=== PATIENT | female | born 1935 | race Asian ===

== ENCOUNTER 2018-07-25 16:50 | Inpatient (IN) | payer MEDICARE, OTHER ==
[~2018-07-25] VITALS: Ht 160 cm; Wt 56.7 kg
[2018-07-25 17:39] VITALS: BP 148/66
--- NOTE | 2018-07-25 17:41 | NUR ---
ED Nurse Note:pt. was BIBA from assist living, s/p fall and bumped her head, skin is intact, no c/o pain, pt. had CT head done
--- NOTE | 2018-07-25 18:20 | Emergency Room Report ---
History of Present Illness General Chief Complaint: Multiple Trauma/Fall Source: Patient Present Illness HPI Patient had a fall and was caught by staff but still ended up hitting her head. Was non-syncopal. She is here for a CAT scan of her head. Patient denies any headache. She's focused on her teeth and the fact that they need to be straightened. She denies any jaw pain. No fevers, chills, chest pain, palpitations, nausea, vomiting, diarrhea, dysuria , abdominal pain, shortness of breath, depression, visual changes, headache. Patient has dementia and recent memory is very poor. Distant memory is good. Multiple falls and staff unable to re-direct and take care of patient. Allergies: Coded Allergies: No Known Allergies (Unverified , 07/25/18) Patient History Limited by: other - Veracity questioned Past Medical History: see triage record Social History: Denies: smoking, alcohol use, drug use Social History Narrative assisted living - retired chief counsel - from [place] Reviewed Nursing Documentation: PMH: Agreed; PSxH: Agreed Nursing Documentation-PMH Past Medical History: No History, Except For Hx Hypertension: Yes Hx Neurological Problems: Yes - Alzheimer's disease, dementia Review of Systems All Other Systems: limited Physical Exam Vital Signs Date Time Temp Pulse Resp B/P (MAP) Pulse Ox O2 Delivery O2 Flow Rate FiO2 07/25/18 16:54 98.2 63 16 148/66 97 Room Air Sp02 EP Interpretation: reviewed, normal General Appearance: well appearing, no apparent distress, alert, other - GCS 14 Head: normocephalic, atraumatic Eyes: bilateral eye normal inspection, bilateral eye PERRL ENT: hearing grossly normal, normal voice, moist mucus membranes - No serious caries or gum inflammation Neck: full range of motion, supple, no bony tend Respiratory: chest non-tender, lungs clear, normal breath sounds, no respiratory distress, speaking full sentences Cardiovascular #1: regular rate, rhythm, no edema Cardiovascular #2: 2+ radial (R) Gastrointestinal: normal inspection, normal bowel sounds, non tender, soft Genitourinary: no CVA tenderness Musculoskeletal: back normal, digits/nails normal, normal range of motion, no calf tenderness Neurologic: alert, travel clerk III-XII nml as tested, motor strength/tone normal, DTRs symmetric, sensory intact, speech normal, oriented - X2 Psychiatric: mood/affect normal, other - poor recent memory Skin: no rash Medical Decision Making Diagnostic Impression: Primary Impression: Head contusion Qualified Codes: S00.93XA - Contusion of unspecified part of head, initial encounter Additional Impressions: Failure to thrive Qualified Codes: R62.7 - Adult failure to thrive UTI (urinary tract infection) Qualified Codes: N39.0 - Urinary tract infection, site not specified ER Course Patient with falling episodes at assisted living. DdX: bleed, contusion, failure to thrive, electrolyte abnormality, CVA, UTI amongst others. Evaluation with CT and labs. CT no bleed. Involutional changes. Labs with pyuria. CXR no infiltrate.. EKG no injury. PMD states living facility can't take care of her. Patient not responding to suggestions to rest. Non-behavioral restraints and sedation ordered. Pyuria. Rocephin ordered. Improved. Less agitated. Ambulatory on own still disoriented and somewhat unsteady. Admit med. Dr. Mcclain. Laboratory Tests Test 07/25/18 18:40 07/25/18 19:20 Urine Color Pale yellow Urine Appearance Clear Urine pH 6 (4.5-8.0) Urine Specific Fred 1.010 (1.005-1.035) Urine Protein Negative (NEGATIVE) Urine Glucose (UA) Negative (NEGATIVE) Urine Ketones Negative (NEGATIVE) Urine Blood Negative (NEGATIVE) Urine Nitrite Positive (NEGATIVE) H Urine Bilirubin Negative (NEGATIVE) Urine Urobilinogen Normal MG/DL (0.0-1.0) Urine Leukocyte Esterase 2+ (NEGATIVE) H Urine RBC 0-2 /HPF (0 - 2) Urine WBC 5-10 /HPF (0 - 2) H Urine Squamous Epithelial Cells Occasional /LPF Urine Bacteria Many /HPF (NONE) H White Blood Count 4.9 K/UL (4.8-10.8) Red Blood Count 3.99 M/UL (4.20-5.40) L Hemoglobin 12.0 G/DL (12.0-16.0) Hematocrit 35.7 % (37.0-47.0) L Mean Corpuscular Volume 90 FL (80-99) Mean Corpuscular Hemoglobin 30.1 PG (27.0-31.0) Mean Corpuscular Hemoglobin Concent 33.7 G/DL (32.0-36.0) Red Cell Distribution Width 11.4 % (11.6-14.8) L Platelet Count 180 K/UL (150-450) Mean Platelet Volume 5.5 FL (6.5-10.1) L Neutrophils (%) (Auto) 59.4 % (45.0-75.0) Lymphocytes (%) (Auto) 29.1 % (20.0-45.0) Monocytes (%) (Auto) 6.9 % (1.0-10.0) Eosinophils (%) (Auto) 3.5 % (0.0-3.0) H Basophils (%) (Auto) 1.1 % (0.0-2.0) Prothrombin Time 10.3 SEC (9.30-11.50) Prothrombin Time INR 1.0 (0.9-1.1) PTT 28 SEC (23-33) Sodium Level 141 MMOL/L (136-145) Potassium Level 3.7 MMOL/L (3.5-5.1) Chloride Level 103 MMOL/L (98-107) Carbon Dioxide Level 31 MMOL/L (21-32) Anion Gap 8 mmol/L (5-15) Blood Urea Nitrogen 21 mg/dL (7-18) H Creatinine 0.8 MG/DL (0.55-1.30) Estimate Glomerular Filtration Rate mL/min (>60) Glucose Level 100 MG/DL (74-106) Calcium Level 9.2 MG/DL (8.5-10.1) Total Bilirubin 0.6 MG/DL (0.2-1.0) Aspartate Amino Transferase (AST) 16 U/L (15-37) Alanine Aminotransferase (ALT) 21 U/L (12-78) Alkaline Phosphatase 85 U/L (46-116) Total Creatine Kinase 104 U/L (26-308) Troponin I 0.016 ng/mL (0.000-0.056) Pro-B-Type Natriuretic Peptide 320 pg/mL (0-125) H Total Protein 7.4 G/DL (6.4-8.2) Albumin 4.2 G/DL (3.4-5.0) Globulin 3.2 g/dL Albumin/Globulin Ratio 1.3 (1.0-2.7) EKG Diagnostic Results Rate: bradycardiac Rhythm: NSR ST Segments: no acute changes Rhythm Strip Diag. Results EP Interpretation: yes Rhythm: no PVC's, no ectopy, other - radha Chest X-Ray Diagnostic Results Chest X-Ray Diagnostic Results : Chest X-Ray Ordered: Yes # of Views/Limited/Complete: 1 View Indication: Other EP Interpretation: Yes Interpretation: no consolidation, no effusion, no pneumothorax Impression: No acute disease Electronically Signed by: Electronically signed by Levar Calvo MD CT/MRI/US Diagnostic Results CT/MRI/US Diagnostic Results : Imaging Test Ordered: head Impression involutional changes Last Vital Signs Date Time Temp Pulse Resp B/P (MAP) Pulse Ox O2 Delivery O2 Flow Rate FiO2 07/25/18 23:00 Room Air 07/25/18 22:00 98.0 57 18 157/72 (100) 98 Status: improved Disposition: ADMITTED INPATIENT Condition: Serious Levar Calvo MD Jul 25, 2018 18:20
[2018-07-25] MEDS ORDERED: Sodium Chloride 550 ML IV SCH (18:30)
[2018-07-25] MEDS ORDERED: DiphenhydrAMINE 50mg/ml Inj IM ONE (18:45)
[2018-07-25] MEDS ORDERED: Haloperidol 5mg/ml Inj IM ONE (18:45)
--- NOTE | 2018-07-25 18:52 | NUR ---
ED Nurse Note:pt. started behaive very restless and more confused, to prevent falling of pt. -she was placed on bilateral wrist soft restraints and haldol given
--- NOTE | 2018-07-25 18:54 | NUR ---
ED Nurse Note:urine sent to labs
[2018-07-25] MEDS ORDERED: TENORMIN50 MG ORAL (19:03)
[2018-07-25] MEDS ORDERED: KLONOPIN0.5 MG ORAL (19:03)
[2018-07-25] MEDS ORDERED: NAMENDA10 MG ORAL (19:03)
[2018-07-25] MEDS ORDERED: CITALOPRAM HBR20 M1 ORAL (19:03)
[2018-07-25] MEDS ORDERED: FOSAMAX70 MG ORAL (19:03)
[2018-07-25] MEDS ORDERED: DONEPEZIL HCL5 MG ORAL (19:03)
[2018-07-25] MEDS ORDERED: LOSARTAN POTAS100 MG ORAL (19:03)
[2018-07-25] MEDS ORDERED: AMLODIPINE BESYL5 MG ORAL (19:03)
[2018-07-25 19:41] LABS: APPEARANCE,URINE CLEAR; BILIRUBIN, URINE NEGATIVE (NEGATIVE); COLOR,URINE PALE YELLOW; GLUCOSE, URINE (UA) NEGATIVE (NEGATIVE); KETONES,URINE NEGATIVE (NEGATIVE); LEUKOCYTE ESTERASE ,URINE 2+ (NEGATIVE); NITRITE,URINE POSITIVE (NEGATIVE); PH,URINE 6 (4.5-8.0); PROTEIN,URINE NEGATIVE (NEGATIVE); UROBILINOGEN,URINE NORMAL MG/DL (0.0-1.0)
[2018-07-25 19:45] LABS: BASOPHILS % (AUTO) 1.1 % (0.0-2.0); EOSINOPHILS % (AUTO) 3.5 % (0.0-3.0); HEMATOCRIT 35.7 % (37.0-47.0); LYMPHOCYTES % (AUTO) 29.1 % (20.0-45.0); MEAN CORPUSCULAR VOLUME 90 FL (80-99); MONOCYTES % (AUTO) 6.9 % (1.0-10.0); NEUTROPHILS % (AUTO) 59.4 % (45.0-75.0); PLATELET COUNT 180 K/UL (150-450); RED BLOOD COUNT 3.99 M/UL (4.20-5.40); RED CELL DISTRIBUTION WIDTH 11.4 % (11.6-14.8); WHITE BLOOD COUNT 4.9 K/UL (4.8-10.8)
[2018-07-25 20:07] LABS: ANION GAP 8 mmol/L (5-15); BLOOD UREA NITROGEN 21 mg/dL (7-18); CALCIUM 9.2 MG/DL (8.5-10.1); CARBON DIOXIDE 31 MMOL/L (21-32); CHLORIDE 103 MMOL/L (98-107); CREATININE 0.8 MG/DL (0.55-1.30); POTASSIUM 3.7 MMOL/L (3.5-5.1); SODIUM 141 MMOL/L (136-145)
[2018-07-25 20:18] LABS: ALANINE AMINOTRANSFERASE 21 U/L (12-78); ALBUMIN 4.2 G/DL (3.4-5.0); ALBUMIN/GLOBULIN RATIO 1.3 (1.0-2.7); ALKALINE PHOSPHATASE 85 U/L (46-116); ASPARTATE AMINO TRANSFERASE 16 U/L (15-37); BILIRUBIN,TOTAL 0.6 MG/DL (0.2-1.0); CREATINE KINASE 104 U/L (26-308)
[2018-07-25 20:25] VITALS: BP 153/55
--- NOTE | 2018-07-25 20:26 | NUR ---
ED Nurse Note: Patient removed IV and attemped to drink from IV cathether. Patient is A&Ox1, PAtient is frequently confused. and expresses that she wants to go home frequently.
[2018-07-25] MEDS ORDERED: cefTRIAXone 1 GM in D5W 55 ML IVPB ONE (21:30)
--- NOTE | 2018-07-25 21:47 | NUR ---
ED Nurse Note: Patient cleared for admission, Patient taken to floor by nanoscience technician. Report given prior to transport to [facility]. PAtient in lucid condition at this time, new IV started and IV rocephin hung prior to transport. Patient is cooperative and talkative at this time.
[2018-07-25 22:00] VITALS: BP 157/72
--- NOTE | 2018-07-25 22:15 | NUR ---
Received report from REYMUNDO Lee from ER. Patient came up to floor on a gurney. No acute signs of distress though very confused and always tries to get out of bed. IV site left AC, flushes, dressing dry and intact. I covered IV site in kerlix as patient pulls at it. Fall precautions taken, bed on lowest position, provided yellow hospital socks, 3 side rails up, call light within reach. Oriented patient to room and pt verbalized understanding. Received admit orders from Renetta Montalvo MD.
[2018-07-26 04:00] VITALS: BP 147/81
[2018-07-26 06:59] LABS: ANION GAP 6 mmol/L (5-15); BLOOD UREA NITROGEN 16 mg/dL (7-18); CALCIUM 8.7 MG/DL (8.5-10.1); CARBON DIOXIDE 30 MMOL/L (21-32); CHLORIDE 108 MMOL/L (98-107); CREATININE 0.7 MG/DL (0.55-1.30); POTASSIUM 3.5 MMOL/L (3.5-5.1); SODIUM 143 MMOL/L (136-145)
[2018-07-26 07:16] LABS: BASOPHILS % (AUTO) 1.2 % (0.0-2.0); EOSINOPHILS % (AUTO) 4.7 % (0.0-3.0); HEMATOCRIT 33.3 % (37.0-47.0); HEMOGLOBIN 11.3 G/DL (12.0-16.0); LYMPHOCYTES % (AUTO) 35.7 % (20.0-45.0); MEAN CORPUSCULAR VOLUME 89 FL (80-99); MONOCYTES % (AUTO) 7.7 % (1.0-10.0); NEUTROPHILS % (AUTO) 50.7 % (45.0-75.0); PLATELET COUNT 170 K/UL (150-450); RED BLOOD COUNT 3.75 M/UL (4.20-5.40); RED CELL DISTRIBUTION WIDTH 11.5 % (11.6-14.8); WHITE BLOOD COUNT 3.9 K/UL (4.8-10.8)
--- NOTE | 2018-07-26 07:19 | NUR ---
HAND-OFF: Report given to David DWYER.
[2018-07-26 08:00] VITALS: BP 147/64
--- NOTE | 2018-07-26 08:08 | NUR ---
NURSE NOTES: pt in bed with no sob nor in any form of distress noted. pt is asleep in bed. denies any pain, will continue to monitor
[2018-07-26] MEDS: Citalopram Hydrobromide 10mg Tab ORAL SCH (09:31)
[2018-07-26] MEDS: Losartan 50mg tab ORAL SCH (09:31)
[2018-07-26] MEDS: Memantine 10mg tab ORAL SCH (09:32)
[2018-07-26] MEDS: clonazePAM 0.5mg tab ORAL SCH ×3 (09:32→17:55)
[2018-07-26] MEDS: Donepezil 5mg Tab ORAL SCH (09:32)
--- NOTE | 2018-07-26 09:40 | Diagnostic Imaging Report ---
Indication: Head trauma and headache Technique: Contiguous 5 mm thick transaxial imaging of the head obtained in a Siemens Sensation [address] scanner. Soft tissue and bone windows generated. Automatic Exposure Control was utilized. Total Dose length Product (DLP): 1407.[address] Dose Index Volume (CTDIvol): 70.38 mGy Comparison: none Findings: There is moderate prominence of the ventricles, basal cisterns, and cerebral sulci consistent with atrophy. Moderate, nonspecific, white matter hypoattenuation is noted throughout the brain consistent with chronic small vessel disease. There is no midline shift, edema, acute hemorrhage, mass effect, or abnormal extra-axial fluid collections. Bones and extra osseous soft tissues are unremarkable. Impression: No acute intracranial bleed, mass effect or edema. Moderate atrophy of the brain. Evidence of chronic small vessel disease involving white matter tracts. [facility] has communicated the preliminary results to the Emergency Department. Their findings are largely concordant with this report. The CT scanner at [facility] is accredited by the [employer] and the scans are performed using dose optimization techniques as appropriate to a performed exam including Automatic Exposure control.
[2018-07-26 12:00] VITALS: BP 140/62
--- NOTE | 2018-07-26 12:17 | Diagnostic Imaging Report ---
Indication: Dyspnea Comparison: None A single view chest radiograph was obtained. Findings: No definite infiltrate or pulmonary vascular congestion identified. The heart is enlarged. The aorta is mildly enlarged consistent with atherosclerotic vascular disease. The bones are osteopenic. Old rib fracture on the left noted Impression: No acute disease
--- NOTE | 2018-07-26 14:35 | History and Physical ---
History of Present Illness General Date patient seen: Jul 26, 2018 Reason for Hospitalization: Multiple Trauma/Fall Present Illness HPI 84 y/o female sent from assisted living for having more frequent falls lately. Pt. had w/u and found to have uti. She does have advanced dementia and has been on mood stabilizers for occasional sun downing. Currently pt. feels ok, denies any c/o Allergies: Coded Allergies: No Known Allergies (Unverified , 07/25/18) Medication History Scheduled Alendronate Sodium* (Fosamax*), 70 MG ORAL ONCE A WEEK, (Reported) Amlodipine Besylate* (Amlodipine Besylate*), 5 MG ORAL DAILY, (Reported) Atenolol* (Tenormin*), 50 MG ORAL DAILY, (Reported) Citalopram Hydrobromide* (Citalopram Hbr*), 20 MG ORAL DAILY, (Reported) Clonazepam* (Klonopin*), 0.5 MG ORAL BID, (Reported) Donepezil Hcl* (Donepezil Hcl*), 5 MG ORAL DAILY, (Reported) Losartan Potassium (Losartan Potassium), 100 MG ORAL DAILY, (Reported) Memantine Hcl* (Namenda*), 10 MG ORAL DAILY, (Reported) Patient History History Provided By: Patient Healthcare decision maker Resuscitation status Full Code Advanced Directive on File Review of Systems Constitutional: Reports: malaise, weakness Eye: Denies: no symptoms, see HPI, eye pain, blurred vision, tearing, double vision, nose pain, nose congestion, acuity changes, discharge, other ENT: Denies: no symptoms, see HPI, ear pain, ear discharge, nose pain, nose congestion, throat pain, throat swelling, mouth pain, hearing loss, nasal discharge, other Respiratory: Denies: no symptoms, see HPI, cough, orthopnea, shortness of breath, stridor, wheezing, JEFFERS, sputum, other Cardiovascular: Denies: no symptoms, see HPI, chest pain, edema, palpitations, syncope, PND, other Gastrointestinal: Denies: no symptoms, see HPI, abdominal pain, constipation, diarrhea, nausea, vomiting, melena, hematemesis, other Musculoskeletal: Reports: muscle stiffness Skin: Denies: no symptoms, see HPI, rash, change in color, change in hair/nails , dryness, lesions, other Psychiatric: Reports: anxiety Endocrine: Denies: no symptoms, see HPI, excessive sweating, flushing, intolerance to temperature, increased thirst, increased urine, unexplained weight loss, other Hematologic/Lymphatic: Denies: no symptoms, see HPI, anemia, blood clots, easy bleeding, easy bruising, swollen glands, diathesis, other Physical Exam General Appearance: WD/WN, no apparent distress, confused HEENT: normocephalic, atraumatic, mucous membranes moist, PERRL Neck: non-tender Respiratory/Chest: lungs clear Cardiovascular/Chest: normal peripheral pulses Abdomen: normal bowel sounds Genitourinary/Rectal: normal genital exam Extremities: no edema Skin Exam: normal pigmentation Neurologic: fashion director party plan sales II-XII grossly normal, responsive Musculoskeletal: atrophy Last 24 Hour Vital Signs Date Time Temp Pulse Resp B/P (MAP) Pulse Ox O2 Delivery O2 Flow Rate FiO2 07/26/18 12:00 98.2 61 20 140/62 (88) 97 07/26/18 09:38 Room Air 07/26/18 09:32 59 147/64 07/26/18 09:31 147/64 07/26/18 08:00 98.2 59 18 147/64 (91) 97 07/26/18 04:00 97.3 61 18 147/81 (103) 100 07/25/18 23:00 Room Air 07/25/18 22:00 98.0 57 18 157/72 (100) 98 07/25/18 21:46 98.2 55 18 153/55 97 Room Air 07/25/18 20:25 98.2 55 18 153/55 97 Room Air 07/25/18 17:39 98.2 63 16 148/66 97 Room Air 07/25/18 17:39 63 16 Room Air 07/25/18 16:54 98.2 63 16 148/66 97 Room Air Intake and Output 07/25/18 07/26/18 18:59 06:59 Intake Total 550 ml Balance 550 ml Intake Oral 100 ml IV Total 450 ml # Voids 2 Laboratory Tests Test 07/25/18 18:40 07/25/18 19:20 07/26/18 05:50 Urine Color Pale yellow Urine Appearance Clear Urine pH 6 (4.5-8.0) Urine Specific [place] 1.010 (1.005-1.035) Urine Protein Negative (NEGATIVE) Urine Glucose (UA) Negative (NEGATIVE) Urine Ketones Negative (NEGATIVE) Urine Blood Negative (NEGATIVE) Urine Nitrite Positive (NEGATIVE) H Urine Bilirubin Negative (NEGATIVE) Urine Urobilinogen Normal MG/DL (0.0-1.0) Urine Leukocyte Esterase 2+ (NEGATIVE) H Urine RBC 0-2 /HPF (0 - 2) Urine WBC 5-10 /HPF (0 - 2) H Urine Squamous Epithelial Cells Occasional /LPF Urine Bacteria Many /HPF (NONE) H White Blood Count 4.9 K/UL (4.8-10.8) 3.9 K/UL (4.8-10.8) L Red Blood Count 3.99 M/UL (4.20-5.40) L 3.75 M/UL (4.20-5.40) L Hemoglobin 12.0 G/DL (12.0-16.0) 11.3 G/DL (12.0-16.0) L Hematocrit 35.7 % (37.0-47.0) L 33.3 % (37.0-47.0) L Mean Corpuscular Volume 90 FL (80-99) 89 FL (80-99) Mean Corpuscular Hemoglobin 30.1 PG (27.0-31.0) 30.2 PG (27.0-31.0) Mean Corpuscular Hemoglobin Concent 33.7 G/DL (32.0-36.0) 34.0 G/DL (32.0-36.0) Red Cell Distribution Width 11.4 % (11.6-14.8) L 11.5 % (11.6-14.8) L Platelet Count 180 K/UL (150-450) 170 K/UL (150-450) Mean Platelet Volume 5.5 FL (6.5-10.1) L 6.0 FL (6.5-10.1) L Neutrophils (%) (Auto) 59.4 % (45.0-75.0) 50.7 % (45.0-75.0) Lymphocytes (%) (Auto) 29.1 % (20.0-45.0) 35.7 % (20.0-45.0) Monocytes (%) (Auto) 6.9 % (1.0-10.0) 7.7 % (1.0-10.0) Eosinophils (%) (Auto) 3.5 % (0.0-3.0) H 4.7 % (0.0-3.0) H Basophils (%) (Auto) 1.1 % (0.0-2.0) 1.2 % (0.0-2.0) Prothrombin Time 10.3 SEC (9.30-11.50) Prothromb Time International Ratio 1.0 (0.9-1.1) Activated Partial Thromboplast Time 28 SEC (23-33) Sodium Level 141 MMOL/L (136-145) 143 MMOL/L (136-145) Potassium Level 3.7 MMOL/L (3.5-5.1) 3.5 MMOL/L (3.5-5.1) Chloride Level 103 MMOL/L (98-107) 108 MMOL/L (98-107) H Carbon Dioxide Level 31 MMOL/L (21-32) 30 MMOL/L (21-32) Anion Gap 8 mmol/L (5-15) 6 mmol/L (5-15) Blood Urea Nitrogen 21 mg/dL (7-18) H 16 mg/dL (7-18) Creatinine 0.8 MG/DL (0.55-1.30) 0.7 MG/DL (0.55-1.30) Estimat Glomerular Filtration Rate mL/min (>60) mL/min (>60) Glucose Level 100 MG/DL (74-106) 83 MG/DL (74-106) Calcium Level 9.2 MG/DL (8.5-10.1) 8.7 MG/DL (8.5-10.1) Total Bilirubin 0.6 MG/DL (0.2-1.0) Aspartate Amino Transf (AST/SGOT) 16 U/L (15-37) Alanine Aminotransferase (ALT/SGPT) 21 U/L (12-78) Alkaline Phosphatase 85 U/L (46-116) Total Creatine Kinase 104 U/L (26-308) Troponin I 0.016 ng/mL (0.000-0.056) Pro-B-Type Natriuretic Peptide 320 pg/mL (0-125) H Total Protein 7.4 G/DL (6.4-8.2) Albumin 4.2 G/DL (3.4-5.0) Globulin 3.2 g/dL Albumin/Globulin Ratio 1.3 (1.0-2.7) Microbiology Date/Time Source Procedure Growth Status 07/25/18 18:40 Urine,Clean Catch Urine Culture - Preliminary Gram Negative Bacillus 1 Resulted 07/25/18 21:00 Rectum Received Height (Feet): 5 Height (Inches): 3.00 Weight (Pounds): 125 Medications Current Medications Medications (Trade) Dose Ordered Sig/Merline Route PRN Reason Start Time Stop Time Status Last Admin Dose Admin Alendronate Sodium (Fosamax) 70 mg Mo@0700 ORAL 07/29/18 07:00 08/28/18 06:59 Amlodipine Besylate (Norvasc) 5 mg DAILY ORAL 07/26/18 09:00 08/25/18 08:59 07/26/18 09:32 Citalopram Hydrobromide (celeXA) 20 mg DAILY ORAL 07/26/18 09:00 08/25/18 08:59 07/26/18 09:31 Clonazepam (KlonoPIN) 0.25 mg BID ORAL 07/26/18 18:00 08/02/18 17:59 UNV Donepezil HCl (Aricept) 5 mg DAILY ORAL 07/26/18 09:00 08/25/18 08:59 07/26/18 09:32 Losartan Potassium (Cozaar) 100 mg DAILY ORAL 07/26/18 09:00 08/25/18 08:59 07/26/18 09:31 Memantine (Namenda) 10 mg DAILY ORAL 07/26/18 09:00 08/25/18 08:59 07/26/18 09:32 Sodium Chloride 1,000 ml @ 75 mls/hr [id number] IV 07/26/18 00:00 08/25/18 00:00 07/26/18 00:40 Assessment/Plan Problem List: (1) Failure to thrive Assessment & Plan: -encourage po -psych eval requested SNOMED: [id number] Qualifiers: Qualified Codes: R62.7 - Adult failure to thrive (2) UTI (urinary tract infection) Assessment & Plan: -cont iv abx, await final cultures ICD Codes: N39.0 - Urinary tract infection, site not specified SNOMED: 49015330 Qualifiers: Qualified Codes: N39.0 - Urinary tract infection, site not specified (3) Multiple injuries due to trauma Assessment & Plan: -decrease klonopin -stop bblocker with low HR -psych eval -PT eval for gait dc 1-2 days if stable ICD Codes: T07.XXXA - Unspecified multiple injuries, initial encounter SNOMED: 258771178 Status: stable Karan Mcclain M.D. Jul 26, 2018 14:35
--- NOTE | 2018-07-26 14:41 | NUR ---
CASE MANAGEMENT:REVIEW BIBA FROM [facility] CC: TRIPPED AND FALL, HIT HER HEAD SI: UTI. HEAD CONTUSION. FTT 98.3 63 16 148/66 97% ON RA BNP+320 IS: 500CC NS BOLUS IM HALDOL X1 IV BENADRYL X1 URINE CX CXR CT HEAD : TO MED/SURG PLAN: NEURO CHECKS Q4HRS
--- NOTE | 2018-07-26 15:48 | Cardiology Report ---
APPROVED REPORT EKG Measurement Heart [id number] Sinus bradycardia Otherwise normal ECG
[2018-07-26 16:00] VITALS: BP 116/51
--- NOTE | 2018-07-26 19:29 | NUR ---
HAND-OFF: Report given to REYMUNDO ruiz.
--- NOTE | 2018-07-26 19:57 | NUR ---
NURSE NOTES: Pt received awake, alert, cooperative, connected NS at 75ml/hr, bed in lowest position, no c/o pain and no signs of distress. Call light within reach.
[2018-07-26 20:00] VITALS: BP 148/63
[2018-07-27] VITALS: BP 130/64
[2018-07-27 04:00] VITALS: BP 146/68
--- NOTE | 2018-07-27 07:36 | NUR ---
HAND-OFF: Report given to REYMUNDO Willis.
[2018-07-27 08:00] VITALS: BP 131/59
--- NOTE | 2018-07-27 08:28 | NUR ---
NURSE NOTES: Patient awake required assistance for bathroom needs gait is unsteady. Pt is confused referring to her father paying the hospital bill because he is not poor. Current plan of care will be followed. call light is in reach. Bed is in safe position
[2018-07-27] MEDS: Losartan 50mg tab ORAL SCH (09:50)
[2018-07-27] MEDS: Memantine 10mg tab ORAL SCH (09:51)
[2018-07-27] MEDS: Donepezil 5mg Tab ORAL SCH (09:51)
[2018-07-27] MEDS: Citalopram Hydrobromide 10mg Tab ORAL SCH (09:51)
[2018-07-27] MEDS: clonazePAM 0.5mg tab ORAL SCH ×2 (09:52→20:36)
--- NOTE | 2018-07-27 11:32 | NUR ---
CASE MANAGEMENT: REVIEW 07/27/2018 SI: UTI. HEAD CONTUSION. FTT T 98.1 HR 67 RR 18 B/P 131/59 SATS 99% ON RA NO LABS TODAY IS: IVF @ 75 mL/HR NORVASC PO QD CELEXA PO QD ARICEPT PO QD COZAAR PO QD NAMENDA PO QD FOSAMAX PO QWEEK KLONOPIN PO Q12H : TO MED/SURG PLAN: NEURO CHECKS Q4H PSYCH EVAL PT EVAL
[2018-07-27 12:00] VITALS: BP 144/65
--- NOTE | 2018-07-27 15:31 | Discharge Summary ---
Discharge Summary Hospital Course Date of Admission Jul 25, 2018 at 19:38 Date of Discharge Admitting Diagnosis failure to thrive HPI Adelita Elena is a 84 year old female who was admitted on Jul 25, 2018 at 19: 38 for Failure To Thrive. she had meds adjusted, taken off bblockers. cont to be confused, will dc to dementia unit and follow up with psych Discharge Condition Upon Discharge: stable Discharge Disposition Patient was discharged to Discharge Diagnoses: (1) Failure to thrive (2) Head contusion (3) UTI (urinary tract infection) (4) Multiple injuries due to trauma Karan Mcclain M.D. Jul 27, 2018 15:30
--- NOTE | 2018-07-27 15:37 | NUR ---
PT Note PT kalyan completed, treatment initiated. Patient was cooperative and able to follow instructions. Patient exhibits confusion and inconsistent with her responses. Patient needs PT services to increase her muscle strength and balance to improve her safety in mobility and prevent falls. Addendum: 07/27/18 at 1543 by IVN HERNANDEZ PT Amended: Links added.
[2018-07-27 16:00] VITALS: BP 135/67
--- NOTE | 2018-07-27 18:54 | NUR ---
NURSE NOTES: Patient extremely confused, required repeated redirection. Believing small child was trapped in in the car. Pt pulled out iv line , repeatedly, as well multiple attempts to get out of bed. Gait is unsteady, non redirectable. Dr. Mcclain here in facility made aware of bx, marketing underwriter inquired about possible antianxiety prn order. did not give any orders"That is how she is , when she goes back to the dementia landin she will be okay" Family phoned listed on facesheet' Why are you calling me for that, she has dementia don't you know that!" " She is always like that, why is she still there anyway, for a fall" marketing underwriter informed family that Dr was here earlier in shift recently seen aunt and did not provide discharge orders. Gave okay for 1-1 sitter. Currently in bed, with sitter at bedside. Cooling Machine Operator walked with pt over 1 and 40 minutes, believing that marketing underwriter was keeping her and not allowing her to go home. cooperated with medication regimen. Current plan of care will be followed,
--- NOTE | 2018-07-27 19:40 | NUR ---
NURSE NOTES: Received patient on bed awake, no s/s of any distress,denies any pain. No IV line noted Sitter at bedside. Bed in low position and locked, call light within reach, will continue to monitor.
--- NOTE | 2018-07-27 19:40 | NUR ---
HAND-OFF: Report given to Anatoly DWYER.
[2018-07-27 20:00] VITALS: BP 143/70
[2018-07-28] VITALS: BP 117/66
[2018-07-28 04:00] VITALS: BP 123/71
--- NOTE | 2018-07-28 07:08 | NUR ---
HAND-OFF: Report given to Silvia DWYER.
--- NOTE | 2018-07-28 07:12 | NUR ---
NURSE NOTES: Pt laying in bed sitter at bed side. Current plan of care will be followed answered questions appropriately this morning. Safety measures will be implemented
[2018-07-28 08:00] VITALS: BP 151/80
[2018-07-28] MEDS: Citalopram Hydrobromide 10mg Tab ORAL SCH (09:03)
[2018-07-28] MEDS: Donepezil 5mg Tab ORAL SCH (09:03)
[2018-07-28] MEDS: Memantine 10mg tab ORAL SCH (09:03)
[2018-07-28] MEDS: clonazePAM 0.5mg tab ORAL SCH (09:03)
[2018-07-28] MEDS: Losartan 50mg tab ORAL SCH (09:03)
[2018-07-28 09:04] VITALS: BP 151/80
--- NOTE | 2018-07-28 09:04 | NUR ---
NURSE NOTES: Medications verfied with charge nurse scanner is not working
--- NOTE | 2018-07-28 10:22 | NUR ---
NURSE NOTES: Pt assisted living phone . Advestigo informed of Dr presence and pending orders for discharge. Call. Pre Billing Specialist made awre of current baseline pt extremely confused. transferred to helpdesk manager, . Anthropometrist stated they are accepting the pt, and she is always confused.
--- NOTE | 2018-07-28 10:24 | NUR ---
NURSE NOTES: Will update notes upon discharge, , here currently in hospital
--- NOTE | 2018-07-28 11:50 | NUR ---
NURSE NOTES: Discharge remains pending , transportation scheduled hop picker is 1230. Jordana bearden phoned to be made aware that family will return to [facility]. report given to Elsa, no new medication. Made aware of current - at this time fro safety purposes. Pt remains non redirectable, gait is unsteady. Per statement of Cindy, pt orientation to self only is her baseline and is aware of unsteady gait.
--- NOTE | 2018-07-28 12:30 | NUR ---
NURSE NOTES: NURSE NOTES: Patient discharge back to [facility] in stable condition , with exception of baseline confusion .Belongings given . Discharged with ambulance with assistance of 2 emt. No signs of distress. continues to be confused . 1-1 monitoring completed at this time.
--- NOTE | 2018-08-03 10:27 | NUR ---
CASE MANAGEMENT: CM review and clinical information (face sheet/DC summary/ ER MD Note/ H&P) faxed to ABHIJIT MCCAIN @ [phone].
[2018-08-05] MEDS ORDERED: HALOPERIDOL5 MG/1 ML IJ (11:13)
[2018-08-05] MEDS ORDERED: HEPARIN SO5000 UNIT2 SUBQ (11:15)
[2018-08-05] MEDS ORDERED: SEROQUEL50 MG ORAL (11:25)
--- NOTE | 2018-08-20 10:42 | NUR ---
*-* INSURANCE *-* DISCHARGE SUMMARY HAS BEEN REFAXED TO: GAB[facility] ABEBE F:[phone]
== END 2018-07-28 12:47 | disposition home or self-care (01) | DRG 605 ==
LOC: EDBD → EMR 17:43 → 4E 19:38 → EDBD 19:38 → EDBEDREQ 20:04 → 4E 23:48
DX: S00.93XA Contusion of unspecified part of head, initial encounter (principal); N39.0 Urinary tract infection, site not specified; R62.7 Adult failure to thrive; Z68.22 Body mass index [BMI] 22.0-22.9, adult; W19.XXXA Unspecified fall, initial encounter; Z91.81 History of falling; Y92.099 Unspecified place in other non-institutional residence as the place of occurrence of the external cause; F03.90 Unspecified dementia, unspecified severity, without behavioral disturbance, psychotic disturbance, mood disturbance, and anxiety; R29.6 Repeated falls
CPT/HCPCS: 36415; 70450; 71045; 80048; 80053; 81003; 82550; 83880; 84484; 85025; 85610; 85730; 87081; 87086; 87181; 93005; 96361; 96365; 96375; 99285

== ENCOUNTER 2018-07-30 16:51 | Emergency (ER) | payer MEDICARE, OTHER ==
[~2018-07-30] VITALS: Ht 165.1 cm; Wt 68.0 kg
[~2018-07-30 16:51] MED LIST: AMLODIPINE BESYL5 MG ORAL; CITALOPRAM HBR20 M1 ORAL; DONEPEZIL HCL5 MG ORAL; FOSAMAX70 MG ORAL; KLONOPIN0.5 MG ORAL; LOSARTAN POTAS100 MG ORAL; NAMENDA10 MG ORAL; TENORMIN50 MG ORAL
[2018-07-30] MEDS ORDERED: AMLODIPINE BESYL5 MG ORAL (16:52)
[2018-07-30 17:00] VITALS: BP 148/86
--- NOTE | 2018-07-30 17:00 | NUR ---
ED Nurse Note: Raghu LAURA from [facility] due to unwitnessed fall incident. Per EMS staff at [facility] found her sitting on the floor. Pt is verbalized her name and date but v Addendum: 07/30/18 at 1736 by [email or web address] ED Nurse Note: Raghu LAURA from [facility] due to unwitnessed fall incident. Per EMS staff at [facility] found her sitting on the floor. Pt is verbalized her name and date but confused as stating "I need to breastfeed my baby. I am visiting my aunt from [facility] because it is my summer vacation." Pt calm and follows command at this moment. skin clean and intact. Pt denied pain and reported that she slided down from chair while she was trying to get up on her own. Pt ambulated with doctor's assist. Steady but slow gait and without reporting pain.
--- NOTE | 2018-07-30 17:08 | Emergency Room Report ---
History of Present Illness General Chief Complaint: Multiple Trauma/Fall Source: Patient, EMS Present Illness HPI 83-year-old female with history of hypertension, mild early dementia, psychosis , complains of a mechanical fall where she tripped on her own shoes and fell backwards onto her buttocks, her family wanted her to get checked out, the patient has no pain complaints, she reports she did not hit her head or neck, had no loss conscious, no numbness tingling, weakness, she was not lightheaded, never had chest pain or palpitations, just tripped up and fell onto her buttocks. Allergies: Coded Allergies: No Known Allergies (Unverified , 07/25/18) Patient History Past Medical History: see triage record Now: No Reviewed Nursing Documentation: PMH: Agreed; PSxH: Agreed Nursing Documentation-PMH Past Medical History: No History, Except For Hx Hypertension: Yes History Of Psychiatric Problem: Yes - ALZHEIMER'S, DEMENTIA Hx Neurological Problems: Yes - Alzheimer's disease, dementia Hx Dementia: Yes Hx Alzheimer's Disease: Yes Hx Concentration Difficulty: Yes Review of Systems All Other Systems: negative except mentioned in HPI Physical Exam Vital Signs Date Time Temp Pulse Resp B/P (MAP) Pulse Ox O2 Delivery O2 Flow Rate FiO2 07/30/18 16:47 98.8 63 12 148/86 97 Sp02 EP Interpretation: reviewed, normal General Appearance: no apparent distress, alert, non-toxic Head: normocephalic Eyes: bilateral eye normal inspection, bilateral eye PERRL, bilateral eye EOMI ENT: normal ENT inspection, hearing grossly normal, normal pharynx, no angioedema, normal voice, moist mucus membranes Neck: normal inspection, full range of motion, supple, no bony tend, supple/ symm/no masses Respiratory: chest non-tender, lungs clear, normal breath sounds, no rhonchi, no respiratory distress, no retraction, no accessory muscle use, chest symmetrical, palpation of chest normal Cardiovascular #1: normal peripheral pulses, regular rate, rhythm, no edema, no gallop, no JVD, no murmur, no rub Cardiovascular #2: 2+ radial (R), 2+ radial (L) Gastrointestinal: normal inspection, non tender, soft, no mass, no guarding, no rebound Rectal: deferred Genitourinary: normal inspection, no CVA tenderness Musculoskeletal: normal inspection, back normal, digits/nails normal, gait/ station normal, normal range of motion, non-tender, no calf tenderness, Gabriela's Sign negative Neurologic: normal inspection, alert, oriented x3, responsive, reading interventionist III-XII nml as tested, motor strength/tone normal, sensory intact, cerebellar normal, normal gait - slightly shuffled but stable and baseline, speech normal Psychiatric: judgement/insight normal, memory normal, mood/affect normal Skin: normal color, no rash, warm/dry, normal turgor Lymphatic: no adenopathy Medical Decision Making Diagnostic Impression: Primary Impression: Fall ER Course 83-year-old female with history of dementia, seems to be alert and oriented to person place and situation, but I was told by the nursing staff that she has episodes of lucidity, and then just recently was saying that she has to breast- feed her child and that 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 Workup unremarkable except age indeterminate thoracic compression fx, and patient with no pain in this area and no tenderness either, will dc home. EKG Diagnostic Results EKG Time: 17:20 EP Interpretation: no stemi Rate: normal Rhythm: NSR ST Segments: no acute changes ASA given to the pt in ED: No Rhythm Strip Diag. Results Rhythm Strip Time: 17:55 EP Interpretation: yes Rate: 59 Rhythm: NSR, no PVC's, no ectopy Chest X-Ray Diagnostic Results Chest X-Ray Diagnostic Results : Chest X-Ray Ordered: Yes # of Views/Limited/Complete: 1 View Indication: Other - fall EP Interpretation: Yes Interpretation: no effusion, no pneumothorax, no acute cardiopulmonary disease, other - reticular opacities diffusely c/w chronic lung dz Impression: No acute disease Electronically Signed by: Ronny Puri MD Other X-Ray Diagnostic Results Other X-Ray Diagnostic Results #1: X-Ray ordered: L spine # of Views/Limited Vs Complete: Limited Indication: Other - fall EP Interpretation: Yes Interpretation: no dislocation, no soft tissue swelling, nonspecific bowel gas, no sbo, other - T12 compression deformity, age indeterminate Impression: Other - T12 compression deformity, age indeterminate, L4-L5 anterolisthesis Electronically Signed by: Ronny Puri MD Other X-Ray Diagnostic Results #2: X-Ray ordered: pelvis # of Views/Limited Vs Complete: 1 View Indication: Other - fall EP Interpretation: Yes Interpretation: no dislocation, no soft tissue swelling, no fractures, nonspecific bowel gas, no sbo Impression: No acute disease Electronically Signed by: Ronny Puri MD CT/MRI/US Diagnostic Results CT/MRI/US Diagnostic Results : Imaging Test Ordered: ct head Impression no acute dz Last Vital Signs Date Time Temp Pulse Resp B/P (MAP) Pulse Ox O2 Delivery O2 Flow Rate FiO2 07/30/18 16:47 98.8 63 12 148/86 97 RONNY PURI M.D Jul 30, 2018 17:08
--- NOTE | 2018-07-30 17:10 | NUR ---
ED Nurse Note: Pt denied hitting head upon fall incident.
--- NOTE | 2018-07-30 17:29 | NUR ---
ED Nurse Note: pt was [email or web address]
[2018-07-30 17:59] LABS: ANION GAP 11 mmol/L (5-15); BASOPHILS % (AUTO) 1.1 % (0.0-2.0); BLOOD UREA NITROGEN 17 mg/dL (7-18); CALCIUM 9.5 MG/DL (8.5-10.1); CARBON DIOXIDE 28 MMOL/L (21-32); CHLORIDE 103 MMOL/L (98-107); CREATININE 0.7 MG/DL (0.55-1.30); EOSINOPHILS % (AUTO) 2.5 % (0.0-3.0); HEMATOCRIT 40.7 % (37.0-47.0); HEMOGLOBIN 13.5 G/DL (12.0-16.0); LYMPHOCYTES % (AUTO) 26.2 % (20.0-45.0); MEAN CORPUSCULAR VOLUME 90 FL (80-99); MONOCYTES % (AUTO) 7.7 % (1.0-10.0); NEUTROPHILS % (AUTO) 62.5 % (45.0-75.0); PLATELET COUNT 208 K/UL (150-450); POTASSIUM 3.8 MMOL/L (3.5-5.1); RED BLOOD COUNT 4.53 M/UL (4.20-5.40); RED CELL DISTRIBUTION WIDTH 11.6 % (11.6-14.8); SODIUM 142 MMOL/L (136-145); WHITE BLOOD COUNT 5.5 K/UL (4.8-10.8)
[2018-07-30 18:04] LABS: ALANINE AMINOTRANSFERASE 24 U/L (12-78); ALBUMIN 4.6 G/DL (3.4-5.0); ALBUMIN/GLOBULIN RATIO 1.3 (1.0-2.7); ALKALINE PHOSPHATASE 104 U/L (46-116); ASPARTATE AMINO TRANSFERASE 27 U/L (15-37); BILIRUBIN,TOTAL 0.6 MG/DL (0.2-1.0)
--- NOTE | 2018-07-30 19:07 | NUR ---
HAND-OFF: Report given to REYMUNDO Jeffrey. Pt stable in bed waiting for the results of CT and x-ray.
[2018-07-30 19:23] VITALS: BP 144/87
[2018-07-30] MEDS ORDERED: LORazepam 1mg tab ORAL ONE (20:15)
[2018-07-30] MEDS ORDERED: KLONOPIN1 MG ORAL (20:22)
[2018-07-30 21:12] VITALS: BP 142/85
--- NOTE | 2018-07-30 21:20 | NUR ---
ED Nurse Note: PT is transfered to [facility] ([facility]) and report given to CALE. pt has been transfered with all belongings. pt status, condition and vital signs is reported to ERMD prior to transfer and is reported to reciving RN. pt is stable for transfer. ED Nurse Note:
--- NOTE | 2018-07-31 10:14 | Diagnostic Imaging Report ---
Indications: Head pain, status post fall Technique: Spiral acquisitions obtained through the brain. Angled axial and coronal 5 x 5 mm slices were reconstructed. Total dose length product 1397.2 mGycm. CTDI vol(s) 70.38 mGy. Dose reduction achieved using automated exposure control Comparison: 07/25/2018 Findings: There is age-related enlargement of the ventricles and extra axial CSF spaces again noted. There is periventricular deep white matter low-attenuation, consistent with chronic ischemic change. 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 No acute intracranial hemorrhage or edema. No mass effect nor midline shift. Otherwise normal alva-white differentiation. There is minimal right maxillary and bilateral ethmoid sinus mucosal thickening. The mastoids are clear. The orbits demonstrate evidence of prior bilateral cataract surgery. The calvarium is intact Impression: Chronic and age-related changes. Negative for acute intracranial bleed or mass effect This agrees with the preliminary interpretation provided overnight by [facility] The CT scanner at [facility] is accredited by the [employer] and the scans are performed using protocols designed to limit radiation exposure to as low as reasonably achievable to attain images of sufficient resolution adequate for diagnostic evaluation.
--- NOTE | 2018-07-31 10:20 | Diagnostic Imaging Report ---
Indication: Pelvic pain, status post fall Technique: One view of the pelvis Comparison: Findings: Numerous phleboliths are seen scattered about the groins bilaterally. No acute fractures. No dislocations. The joint spaces are preserved. There are mild degenerative changes of the lumbosacral junction Impression: No acute process. Findings as noted. Note, however, that in elderly osteoporotic patients, nondisplaced hip and pelvic fractures can easily be occult. Consider cross-sectional imaging if there is high clinical suspicion
--- NOTE | 2018-07-31 10:26 | Diagnostic Imaging Report ---
Indication: Pain, status post fall Technique: 3 views of the lumbar spine Comparison: None Findings: There is a wedge compression fracture deformity of the T12 vertebral body with approximately 50% height loss anteriorly. The remaining vertebral body heights are preserved. No other evidence of acute fracture. There is anterior offset of L4 on L5, without definite evidence of any pars defect. The disc spaces are preserved. There is fairly extensive lower lumbar facet arthrosis. Impression: Age-indeterminate compression fracture of T12. Consider MRI for better characterization if clinically indicated Degenerative changes, as described This agrees with the findings reported by the emergency room physician in the electronic medical record
--- NOTE | 2018-07-31 11:22 | Diagnostic Imaging Report ---
Indication: Cough Technique: One view of the chest Comparison: 07/25/2018 Findings: The lungs and pleural spaces are clear. The heart size is upper limits of normal. The aorta is tortuous and calcified. No significant change Impression: No acute process
--- NOTE | 2018-07-31 18:37 | Cardiology Report ---
APPROVED REPORT EKG Measurement Heart [id number] Normal sinus rhythm Normal ECG
== END 2018-07-30 21:00 | disposition home or self-care (01) ==
LOC: EDBD → EMR 17:21
DX: Z04.3 Encounter for examination and observation following other accident (principal); G30.9 Alzheimer's disease, unspecified; F02.80 Dementia in other diseases classified elsewhere, unspecified severity, without behavioral disturbance, psychotic disturbance, mood disturbance, and anxiety; I10 Essential (primary) hypertension; Z91.81 History of falling; R51 Headache; R05 Cough; R10.2 Pelvic and perineal pain
CPT/HCPCS: 36415; 70450; 71045; 72020; 72170; 80053; 84484; 85025; 93005; 99284

== ENCOUNTER 2018-08-09 21:54 | Emergency (ER) | payer OTHER ==
[~2018-08-09] VITALS: Ht 162.6 cm; Wt 65.8 kg
[~2018-08-09 21:54] MED LIST changes: +HALOPERIDOL5 MG/1 ML IJ; +HEPARIN SO5000 UNIT2 SUBQ; +KLONOPIN1 MG ORAL; +SEROQUEL50 MG ORAL
[2018-08-09 21:59] VITALS: BP 152/53
--- NOTE | 2018-08-09 22:00 | NUR ---
ED Nurse Note: Patient presents A&ox4, no s.s of acute distress, no wounds skin intact, IV RAC 20G intact, patent with good blood return.
--- NOTE | 2018-08-09 22:31 | Emergency Room Report ---
History of Present Illness General Chief Complaint: Multiple Trauma/Fall Source: Patient, Medical Record, EMS Present Illness HPI Is an 83-year-old female with a history of dementia. She was sent in from senior care with weakness and fall. Unwitnessed fall twice. Patient denies any symptom. She said she did not hit her head. She denies any complaint. History is limited because of patient dementia. Allergies: Coded Allergies: No Known Allergies (Unverified , 07/25/18) Patient History Past Medical History: see triage record, old chart reviewed, dementia Past Surgical History: other Pertinent Family History: none Social History: Denies: smoking Last Menstrual Period: YAJAIRA Now: No Immunizations: other Reviewed Nursing Documentation: PMH: Agreed; PSxH: Agreed Nursing Documentation-PMH Hx Hypertension: Yes Hx Cancer: No Hx Gastrointestinal Problems: No Hx Neurological Problems: Yes Hx Dementia: Yes Hx Alzheimer's Disease: Yes Hx Concentration Difficulty: Yes Review of Systems Eye: Denies: eye pain, blurred vision ENT: Denies: ear pain, nose congestion, throat swelling Respiratory: Denies: cough, shortness of breath Cardiovascular: Denies: chest pain, palpitations Gastrointestinal: Denies: abdominal pain, diarrhea, nausea, vomiting Musculoskeletal: Denies: back pain, joint pain Skin: Denies: rash Neurological: Denies: headache, numbness Endocrine: Denies: increased thirst, increased urine Hematologic/Lymphatic: Denies: easy bruising All Other Systems: negative except mentioned in HPI Physical Exam Vital Signs Date Time Temp Pulse Resp B/P (MAP) Pulse Ox O2 Delivery O2 Flow Rate FiO2 08/09/18 21:57 97.5 58 16 162/74 92 Room Air vitals with high blood pressure Sp02 EP Interpretation: reviewed, normal General Appearance: well appearing, no apparent distress, alert Head: normocephalic, atraumatic, other - No trauma but patient complaining of some tenderness to the occiput Eyes: bilateral eye PERRL, bilateral eye EOMI ENT: hearing grossly normal, normal pharynx Neck: full range of motion, supple, no meningismus Respiratory: chest non-tender, lungs clear, normal breath sounds Cardiovascular #1: regular rate, rhythm, no murmur Gastrointestinal: normal bowel sounds, non tender, no mass, no organomegaly, no bruit, non-distended Musculoskeletal: back normal, gait/station normal, normal range of motion Psychiatric: mood/affect normal Skin: warm/dry Medical Decision Making Diagnostic Impression: Primary Impression: Head injury, acute Qualified Codes: S09.90XA - Unspecified injury of head, initial encounter Additional Impression: Dementia Qualified Codes: F03.90 - Unspecified dementia without behavioral disturbance ER Course Patient with fall and questionable head injury. I see no obvious injury here. CT negative. Labs negative. No infection. We'll discharge back to senior care. CT/MRI/US Diagnostic Results CT/MRI/US Diagnostic Results : Imaging Test Ordered: CT head Impression negative per radiologist Last Vital Signs Date Time Temp Pulse Resp B/P (MAP) Pulse Ox O2 Delivery O2 Flow Rate FiO2 08/09/18 21:59 58 16 Room Air 08/09/18 21:59 97.5 152/53 96 Status: improved Disposition: XFER SNF Condition: Stable Additional Instructions: Fall precautions. Follow-up with your doctor in 7 days. Return if worse. Washington Ruiz MD Aug 09, 2018 22:30
--- NOTE | 2018-08-09 22:54 | Diagnostic Imaging Report ---
EXAM: CT Head Without Intravenous Contrast CLINICAL HISTORY: TRAUMA TECHNIQUE: Axial computed tomography images of the head/brain without intravenous contrast. CTDI is 0.15, 70.38 mGy and DLP is 1386 mGy-cm. One or more of the following dose reduction techniques were used: automated exposure control, adjustment of the mA and/or kV according to patient size, use of iterative reconstruction technique. COMPARISON: CT head dated 07/31/2017 FINDINGS: Brain: No acute infarct, hemorrhage, mass or edema. Chronic small vessel ischemic disease and senescent changes. Ventricles: Unremarkable. No ventriculomegaly. Bones/joints: Unremarkable. No acute fracture. Soft tissues: Unremarkable. Sinuses: Mild mucosal thickening of paranasal sinuses. Mastoid air cells: Unremarkable as visualized. No mastoid effusion. IMPRESSION: No acute findings.
[2018-08-09 22:58] LABS: ANION GAP 6 mmol/L (5-15); BLOOD UREA NITROGEN 19 mg/dL (7-18); CALCIUM 9.2 MG/DL (8.5-10.1); CARBON DIOXIDE 28 MMOL/L (21-32); CHLORIDE 106 MMOL/L (98-107); CREATININE 0.6 MG/DL (0.55-1.30); POTASSIUM 4.2 MMOL/L (3.5-5.1); SODIUM 140 MMOL/L (136-145)
[2018-08-09 22:59] LABS: EOSINOPHILS % (AUTO) 3.5 % (0.0-3.0); HEMATOCRIT 42.3 % (37.0-47.0); HEMOGLOBIN 14.1 G/DL (12.0-16.0); LYMPHOCYTES % (AUTO) 26.3 % (20.0-45.0); MEAN CORPUSCULAR VOLUME 89 FL (80-99); MONOCYTES % (AUTO) 7.4 % (1.0-10.0); NEUTROPHILS % (AUTO) 61.6 % (45.0-75.0); PLATELET COUNT 194 K/UL (150-450); RED BLOOD COUNT 4.75 M/UL (4.20-5.40); RED CELL DISTRIBUTION WIDTH 11.5 % (11.6-14.8); WHITE BLOOD COUNT 5.4 K/UL (4.8-10.8)
--- NOTE | 2018-08-09 23:01 | NUR ---
ED Nurse Note: Patient resting comfortably with no s/s of acute distress, no complaints of pain.
[2018-08-09 23:21] LABS: APPEARANCE,URINE CLEAR; BILIRUBIN, URINE NEGATIVE (NEGATIVE); COLOR,URINE PALE YELLOW; GLUCOSE, URINE (UA) NEGATIVE (NEGATIVE); KETONES,URINE NEGATIVE (NEGATIVE); LEUKOCYTE ESTERASE ,URINE 1+ (NEGATIVE); NITRITE,URINE NEGATIVE (NEGATIVE); PH,URINE 5 (4.5-8.0); PROTEIN,URINE NEGATIVE (NEGATIVE); UROBILINOGEN,URINE NORMAL MG/DL (0.0-1.0)
--- NOTE | 2018-08-09 23:58 | NUR ---
ED Nurse Note: PAtient resting vital signs stable, no complaints of pain or discomfort.
[2018-08-09 23:59] VITALS: BP 141/116
--- NOTE | 2018-08-10 00:57 | NUR ---
ED Nurse Note: Patient is relaxing with no s/s of acute distress.
--- NOTE | 2018-08-10 01:13 | NUR ---
ED Nurse Note: Patient cleared for discharge back to [facility], patient is awake and alert.A&Ox3. IV removed, ID band removed. Patient took all personal belongings upon departure.
[2018-08-10 01:26] VITALS: BP 171/52
== END 2018-08-10 01:27 ==
LOC: EDBD 21:54 → EMR 22:13
DX: S09.8XXA Other specified injuries of head, initial encounter (principal); W19.XXXA Unspecified fall, initial encounter; Y92.009 Unspecified place in unspecified non-institutional (private) residence as the place of occurrence of the external cause; I10 Essential (primary) hypertension; G30.9 Alzheimer's disease, unspecified; F02.80 Dementia in other diseases classified elsewhere, unspecified severity, without behavioral disturbance, psychotic disturbance, mood disturbance, and anxiety
CPT/HCPCS: 36415; 70450; 80048; 81001; 85025; 96360; 99284